=== PATIENT | male | born 2000 | race Two or more races ===

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

== ENCOUNTER 2023-03-07 22:29 | Emergency (ER) | payer MEDICAID | END 2023-03-08 00:17 | disposition left against medical advice (07) | LOC: ER 22:29 | DX: J02.9 Acute pharyngitis, unspecified (principal); Z53.21 Procedure and treatment not carried out due to patient leaving prior to being seen by health care provider ==